=== PATIENT | male | born 1960 | race Asian ===

== ENCOUNTER 2024-11-27 08:20 | Day surgery (SDC) | payer MEDICARE, OTHER, SELFPAY ==
[2024-11-26 11:44] VITALS: BMI 23.8
[2024-11-27] VITALS (11 sets, daily range): BP systolic 91–131; BP diastolic 53–80; PULSE 46–55; RESP 13–18; TEMP 36.3–36.4; O2SAT 95–99; BMI 23.7
[2024-11-27] MEDS: LIDOCAINE JELLY 2% (Urojet) 10 ML TUBE TOP (10:24)
[2024-11-27] MEDS: SODIUM CHLORIDE 0.9% 500 ML 500 ML 20 ML IV (10:24)
[2024-11-27] MEDS: MIDAZOLAM INJ 1 MG/ML VIAL 2 ML (ASD USE ONLY) 2 MG IVP (10:34)
[2024-11-27] MEDS: fentaNYL CIT INJ 50 mCg/ML AMP 2ML (ASD USE ONLY) IVP (10:34)
== END 2024-11-27 12:00 | disposition home or self-care (01) ==
PROVIDERS: PCP Family Medicine; Referring Provider Specialist; Visit Provider Specialist
PROC: 0DBE8ZX Excision of Large Intestine, Via Natural or Artificial Opening Endoscopic, Diagnostic (ICD-10-PCS; CPT 45380; principal; 2024-11-27 11:15)
DX: K64.2 Third degree hemorrhoids (principal); E78.5 Hyperlipidemia, unspecified
CPT/HCPCS: 45398; A4649; J1200; J2250; J3010; J7999